=== PATIENT | male | born 1960 | race Caucasian/White ===

== ENCOUNTER 2016-05-22 02:45 | Emergency (ER) | payer OTHER ==
[2016-05-22 02:53] VITALS: TEMP 97.5
--- NOTE | 2016-05-22 03:09 | ED ---
Chest Pain HPI - General Chief Complaint: Chest Pain Stated Complaint: chest pains Time Seen by Provider: 05/22/16 02:55 Source: patient, RN notes reviewed Mode of arrival: wheelchair Limitations: no limitations - History of Present Illness Initial Comments: This is a 55-year-old male with a history of hypertension and high cholesterol states he had the onset at 8 PM last night of left-sided axillary pain sharp in nature mild to moderate in severity increases with movement of his arms he denies any cough fevers chills sweats nausea vomiting states it radiates around his left breast area. He is not recall lifting anything really having he did move a 15 pound approximate piece of furniture recently. He did recall any abnormal movements. He denies any other symptoms he has no history of heart disease. He is a nonsmoker. Patient does state that he recently was treated for a cold with a Z-Claudio. MD Complaint: chest pain - Related Data Home Medications Medication Instructions Recorded Confirmed Atorvastatin [Lipitor] 10 mg PO DAILY 11/09/13 05/22/16 amLODIPine BESYLATE [Norvasc] 5 mg PO DAILY 11/09/13 05/22/16 HYDROcodone/APAP 7.5-325MG [[place] 1 tab PO Q6HR PRN 11/27/13 05/22/16 7.5-325] Previous Rx's Medication Instructions Recorded Cyclobenzaprine [Flexeril] 10 mg PO TID #14 tab 05/22/16 Ibuprofen [Motrin] 800 mg PO Q6HR PRN #20 tab 05/22/16 Allergies Allergy/AdvReac Type Severity Reaction Status Date / Time bee pollen [Bee Pollen] Allergy Swelling Verified 11/09/13 10:18 Review of Systems ROS Statement: Those systems with pertinent positive or pertinent negative responses have been documented in the HPI. ROS Other: All systems not noted in ROS Statement are negative. EKG Findings - EKG Results: EKG: interpreted by YASMANI, sinus rhythm (Sinus rhythm with a rate 77 [place] interval 164 QRS duration 108 QT/QTC 396/448 evidence a left exodeviation acute ST elevation or depressions.) Past Medical History Past Medical History: Hyperlipidemia, Hypertension, Musculoskeletal Disorder Additional Past Medical History / Comment(s): INJURY TO RT SHOULDER AT PRESENT History of Any Multi-Drug Resistant Organisms: None Reported Past Surgical History: Bowel Resection, Orthopedic Surgery Additional Past Surgical History / Comment(s): rt knee arthroscopy Past Anesthesia/Blood Transfusion Reactions: No Reported Reaction Past Psychological History: No Psychological Hx Reported Smoking Status: Former smoker Past Alcohol Use History: Occasional Past Drug Use History: None Reported General Exam - General Exam Comments Initial Comments: This is a well-developed well-nourished awake alert oriented x3 male Limitations: no limitations General appearance: alert, in no apparent distress Head exam: Present: atraumatic, normocephalic, normal inspection Eye exam: Present: normal appearance, PERRL, EOMI. Absent: scleral icterus, conjunctival injection, periorbital swelling ENT exam: Present: normal exam, mucous membranes moist Neck exam: Present: normal inspection. Absent: tenderness, meningismus, lymphadenopathy Respiratory exam: Present: normal lung sounds bilaterally, chest wall tenderness (Tenderness palpation of the left pectoralis muscle and around the left axilla. Some mild costochondral tenderness palpation no step-off no crepitation.). Absent: respiratory distress, wheezes, rales, rhonchi, stridor Cardiovascular Exam: Present: regular rate, normal rhythm, normal heart sounds. Absent: systolic murmur, diastolic murmur, rubs, gallop, clicks GI/Abdominal exam: Present: soft, normal bowel sounds. Absent: distended, tenderness, guarding, rebound, rigid Extremities exam: Present: normal inspection, full ROM, normal capillary refill. Absent: tenderness, pedal edema, joint swelling, calf tenderness Back exam: Present: normal inspection Neurological exam: Present: alert, oriented X3, CN II-XII intact Psychiatric exam: Present: normal affect, normal mood Skin exam: Present: warm, dry, intact, normal color. Absent: rash Course Vital Signs 05/22/16 05/22/16 05/22/16 02:50 03:38 04:18 Temperature 97.5 F L Pulse Rate 86 63 69 Respiratory 18 16 16 Rate Blood Pressure 168/88 133/79 133/79 O2 Sat by Pulse 99 98 98 Oximetry Chest Pain MDM - MDM Review the x-ray shows no acute findings. I did discuss the findings with the patient the presentation is consistent with musculoskeletal pain he will be placed on appropriate medication. Disposition Clinical Impression: Chest wall syndrome, Costalchondritis, Left shoulder strain Disposition: HOME SELF-CARE Condition: Good Instructions: Costochondritis (ED), Muscle Strain (ED) Prescriptions: Cyclobenzaprine [Flexeril] 10 mg PO TID #14 tab Ibuprofen [Motrin] 800 mg PO Q6HR PRN #20 tab PRN Reason: Pain
[2016-05-22 03:15] LABS: Basophils # (A) 0.1 k/uL (0-0.2); Basophils % (A) 1 %; CH 29.9; CHCM 33.3; Eosinophils # (A) 0.4 k/uL (0-0.7); Eosinophils % (A) 3 %; HCT 45.7 % (39.0-53.0); HDW 2.59; HGB 14.9 gm/dL (13.0-17.5); Luc # (Auto) 0.27; Luc % (Auto) 2; Lymphocytes # (A) 4.7 k/uL (1.0-4.8); Lymphocytes % (A) 31 %; MCH 29.5 pg (25.0-35.0); MCHC 32.7 g/dL (31.0-37.0); MCV 90.3 fL (80.0-100.0); Mean Platelet Volume 7.1; Monocytes # (A) 0.7 k/uL (0-1.0); Monocytes % (A) 4 %; Neutrophils # (A) 8.8 k/uL (1.3-7.7); Neutrophils % (A) 59 %; RBC 5.06 m/uL (4.30-5.90); RDW 13.8 % (11.5-15.5); WBC 14.9 k/uL (3.8-10.6); WBC (Perox) 14.72
[2016-05-22 03:27] LABS: ALT 40 U/L (21-72); AST 23 U/L (17-59); Alkaline Phosphatase 101 U/L (38-126); Anion Gap 14 mmol/L; Blood Urea Nitrogen 21 mg/dL (9-20); Calcium 9.1 mg/dL (8.4-10.2); Carbon Dioxide 19 mmol/L (22-30); Chloride 108 mmol/L (98-107); Glucose 109 mg/dL (74-99); Magnesium 2.1 mg/dL (1.6-2.3); Non-African American GFR(MDRD) >60 (>60 ml/min/1.73 sqM); Potassium 3.9 mmol/L (3.5-5.1); Sodium 141 mmol/L (137-145); Total Bilirubin 0.4 mg/dL (0.2-1.3); Total Protein 7.7 g/dL (6.3-8.2)
[2016-05-22 03:35] LABS: Prothrombin Time 9.9 sec (9.0-12.0)
[2016-05-22 03:39] VITALS: BP 133/79; RESP 16
--- NOTE | 2016-05-22 03:42 | XR ---
EXAMINATION TYPE: XR chest 2V DATE OF EXAM: 05/22/2016 3:16 AM COMPARISON: NONE HISTORY: Chest pain TECHNIQUE: Frontal and lateral views of the chest are obtained. FINDINGS: Heart and mediastinum are normal. Lungs are clear. Diaphragm is normal. Bony thorax is int act. There are chest leads. IMPRESSION: Normal chest
[2016-05-22 03:48] LABS: Creatine Kinase 49 U/L (55-170)
[2016-05-22 04:01] LABS: Creatine Kinase MB 0.5 ng/mL (0.0-2.4); Troponin I <0.012 ng/mL (0.000-0.034)
[2016-05-22 04:19] VITALS: PULSE 69
== END 2016-05-22 04:29 | disposition home or self-care (01) ==
LOC: EC 02:45
DX: S46.912A Strain of unspecified muscle, fascia and tendon at shoulder and upper arm level, left arm, initial encounter (principal); M94.0 Chondrocostal junction syndrome [Tietze]; R07.1 Chest pain on breathing; E78.5 Hyperlipidemia, unspecified; I10 Essential (primary) hypertension; Z91.030 Bee allergy status; Z87.891 Personal history of nicotine dependence; Z79.899 Other long term (current) drug therapy; X50.9XXA Other and unspecified overexertion or strenuous movements or postures, initial encounter; Y93.89 Activity, other specified
CPT/HCPCS: 36415; 71020; 80053; 82550; 82553; 83735; 84484; 85025; 85379; 85610; 85730; 93005; 99285

== ENCOUNTER 2016-09-24 10:00 | Emergency (ER) | payer OTHER ==
--- NOTE | 2016-09-24 10:15 | ED ---
General Adult HPI - General Chief complaint: Neuro Symptoms/Deficit Stated complaint: tingling left side Time Seen by Provider: 09/24/16 10:05 Source: patient, RN notes reviewed Mode of arrival: ambulatory Limitations: no limitations - History of Present Illness Initial comments: This is a 56-year-old male who presents to the emergency department complaining of tingling sensation on the left side of his body. Patient states it's in his left arm and left chest and abdomen area. Patient states it started last night at about 9:00 and it is intermittent. Patient states as long as he moves around it goes away when he sits still the tingling sensation comes back. Patient states he has no decrease sensation he has no weakness anywhere. Patient denies headache patient denies blurred vision patient denies any speech disturbance. Patient denies any recent injury or trauma. Patient states this morning he got up moving around he felt fine he went bicycle 5 miles when he sat down the tingling sensation came back and then he moves around again and it goes away. Patient denied any chest pain patient denies difficulty breathing or shortness of breath. Patient denies any recent fever chills per patient denies abdominal pain patient denies nausea vomiting or diarrhea. - Related Data Home Medications Medication Instructions Recorded Confirmed Atorvastatin [Lipitor] 10 mg PO DAILY 11/09/13 09/24/16 HYDROcodone/APAP 7.5-325MG [[place] 1 tab PO Q6HR PRN 11/27/13 09/24/16 7.5-325] Aspirin 325 mg PO DAILY PRN 09/24/16 09/24/16 amLODIPine [Norvasc] 10 mg PO DAILY 09/24/16 09/24/16 Previous Rx's Medication Instructions Recorded Ibuprofen [Motrin] 800 mg PO Q6HR PRN #20 tab 05/22/16 Allergies Allergy/AdvReac Type Severity Reaction Status Date / Time bee pollen [Bee Pollen] Allergy Swelling Verified 09/24/16 11:20 Review of Systems ROS Statement: Those systems with pertinent positive or pertinent negative responses have been documented in the HPI. ROS Other: All systems not noted in ROS Statement are negative. Past Medical History Past Medical History: Hyperlipidemia, Hypertension, Musculoskeletal Disorder Additional Past Medical History / Comment(s): INJURY TO RT SHOULDER AT PRESENT History of Any Multi-Drug Resistant Organisms: None Reported Past Surgical History: Bowel Resection, Orthopedic Surgery Additional Past Surgical History / Comment(s): rt knee arthroscopy Past Anesthesia/Blood Transfusion Reactions: No Reported Reaction Past Psychological History: No Psychological Hx Reported Smoking Status: Former smoker Past Alcohol Use History: Occasional Past Drug Use History: None Reported General Exam - General Exam Comments Initial Comments: GENERAL: Patient is well-developed and well-nourished. Patient is nontoxic and well- hydrated and is in mild distress. ENT: Neck is soft and supple. No significant lymphadenopathy is noted. Oropharynx is clear. Moist mucous membranes. Neck has full range of motion without eliciting any pain. EYES: The sclera were anicteric and conjunctiva were pink and moist. Extraocular movements were intact and pupils were equal round and reactive to light. Eyelids were unremarkable. PULMONARY: Unlabored respirations. Good breath sounds bilaterally. No audible rales rhonchi or wheezing was noted. CARDIOVASCULAR: There is a regular rate and rhythm without any murmurs gallops or rubs. ABDOMEN: Soft and nontender with normal bowel sounds. No palpable organomegaly was noted. There is no palpable pulsatile mass. SKIN: Skin is clear with no lesions or rashes and otherwise unremarkable. NEUROLOGIC: Patient is alert and oriented x3. Cranial nerves II through XII are grossly intact. Motor and sensory are also intact. Normal speech, volume and content. Symmetrical smile. MUSCULOSKELETAL: Normal extremities with adequate strength and full range of motion. No lower extremity swelling or edema. No calf tenderness. LYMPHATICS: No significant lymphadenopathy is noted PSYCHIATRIC: Normal psychiatric evaluation. Limitations: no limitations Course Vital Signs 09/24/16 09/24/16 09/24/16 10:04 10:45 11:22 Temperature 98.1 F Pulse Rate 89 76 72 Respiratory 20 18 18 Rate Blood Pressure 147/84 131/77 122/76 O2 Sat by Pulse 99 99 98 Oximetry Medical Decision Making - Medical Decision Making EKG shows normal sinus rhythm at 82 bpm. It was on a 58 QRS 136 QT interval 46 QTC is 474. Patient's EKG shows no ST segment elevation or depression or T wave abnormalities are noted. Patient has a right branch block which is new compared the old EKG done one year ago. CT of the brain shows no acute abnormality. Chest x-ray shows no acute abnormality. I went back in to reevaluate the patient patient states he can make tingling sensation go away immediately any time he moves his arm or start getting up and moving around. Patient states he' ll follow up with Dr. Mcgrath. - Lab Data Result diagrams: 09/24/16 10:20 09/24/16 10:20 Lab Results 09/24/16 09/24/16 09/24/16 Range/Units 10:20 10:20 10:20 WBC 7.7 (3.8-10.6) k/uL RBC 4.90 (4.30-5.90) m/uL Hgb 14.6 (13.0-17.5) gm/dL Hct 44.7 (39.0-53.0) % MCV 91.1 (80.0-100.0) fL MCH 29.8 (25.0-35.0) pg MCHC 32.7 (31.0-37.0) g/dL RDW 13.8 (11.5-15.5) % Plt Count 265 (150-450) k/uL Neutrophils % 66 % Lymphocytes % 24 % Monocytes % 4 % Eosinophils % 3 % Basophils % 1 % Neutrophils # 5.1 (1.3-7.7) k/uL Lymphocytes # 1.9 (1.0-4.8) k/uL Monocytes # 0.3 (0-1.0) k/uL Eosinophils # 0.2 (0-0.7) k/uL Basophils # 0.1 (0-0.2) k/uL PT (9.0-12.0) sec INR (<1.1) APTT (22.0-30.0) sec Sodium 141 (137-145) mmol/L Potassium 4.6 (3.5-5.1) mmol/L Chloride 108 H (98-107) mmol/L Carbon Dioxide 20 L (22-30) mmol/L Anion Gap 13 mmol/L BUN 15 (9-20) mg/dL Creatinine 0.86 (0.66-1.25) mg/dL Est GFR (MDRD) Af Amer >60 (>60 ml/min/1.73 sqM) Est GFR (MDRD) Non-Af >60 (>60 ml/min/1.73 sqM) Glucose 110 H (74-99) mg/dL Calcium 9.5 (8.4-10.2) mg/dL Total Bilirubin 0.7 (0.2-1.3) mg/dL AST 25 (17-59) U/L ALT 33 (21-72) U/L Alkaline Phosphatase 108 (38-126) U/L Total Creatine Kinase 131 (55-170) U/L CK-MB (CK-2) 0.8 (0.0-2.4) ng/mL CK-MB (CK-2) Rel Index 0.6 Troponin I <0.012 (0.000-0.034) ng/mL Total Protein 8.2 (6.3-8.2) g/dL Albumin 4.6 (3.5-5.0) g/dL 09/24/16 Range/Units 10:20 WBC (3.8-10.6) k/uL RBC (4.30-5.90) m/uL Hgb (13.0-17.5) gm/dL Hct (39.0-53.0) % MCV (80.0-100.0) fL MCH (25.0-35.0) pg MCHC (31.0-37.0) g/dL RDW (11.5-15.5) % Plt Count (150-450) k/uL Neutrophils % % Lymphocytes % % Monocytes % % Eosinophils % % Basophils % % Neutrophils # (1.3-7.7) k/uL Lymphocytes # (1.0-4.8) k/uL Monocytes # (0-1.0) k/uL Eosinophils # (0-0.7) k/uL Basophils # (0-0.2) k/uL PT 10.1 (9.0-12.0) sec INR 1.0 (<1.1) APTT 23.6 (22.0-30.0) sec Sodium (137-145) mmol/L Potassium (3.5-5.1) mmol/L Chloride (98-107) mmol/L Carbon Dioxide (22-30) mmol/L Anion Gap mmol/L BUN (9-20) mg/dL Creatinine (0.66-1.25) mg/dL Est GFR (MDRD) Af Amer (>60 ml/min/1.73 sqM) Est GFR (MDRD) Non-Af (>60 ml/min/1.73 sqM) Glucose (74-99) mg/dL Calcium (8.4-10.2) mg/dL Total Bilirubin (0.2-1.3) mg/dL AST (17-59) U/L ALT (21-72) U/L Alkaline Phosphatase (38-126) U/L Total Creatine Kinase (55-170) U/L CK-MB (CK-2) (0.0-2.4) ng/mL CK-MB (CK-2) Rel Index Troponin I (0.000-0.034) ng/mL Total Protein (6.3-8.2) g/dL Albumin (3.5-5.0) g/dL Disposition Clinical Impression: Paresthesias Disposition: HOME SELF-CARE Condition: Good Instructions: Paresthesia (ED) Referrals: Ej Mcgrath MD [Primary Care Provider] - 1-2 days Time of Disposition: 11:31
[2016-09-24 10:33] LABS: Basophils # (A) 0.1 k/uL (0-0.2); Basophils % (A) 1 %; CH 30.5; CHCM 33.7; Eosinophils # (A) 0.2 k/uL (0-0.7); Eosinophils % (A) 3 %; HCT 44.7 % (39.0-53.0); HDW 2.48; HGB 14.6 gm/dL (13.0-17.5); Luc # (Auto) 0.17; Luc % (Auto) 2; Lymphocytes # (A) 1.9 k/uL (1.0-4.8); Lymphocytes % (A) 24 %; MCH 29.8 pg (25.0-35.0); MCHC 32.7 g/dL (31.0-37.0); MCV 91.1 fL (80.0-100.0); Mean Platelet Volume 7.6; Monocytes # (A) 0.3 k/uL (0-1.0); Monocytes % (A) 4 %; Neutrophils # (A) 5.1 k/uL (1.3-7.7); Neutrophils % (A) 66 %; RDW 13.8 % (11.5-15.5); WBC 7.7 k/uL (3.8-10.6); WBC (Perox) 7.52
[2016-09-24 10:41] LABS: Partial Thromboplastin Time 23.6 sec (22.0-30.0); Prothrombin Time 10.1 sec (9.0-12.0)
[2016-09-24 10:43] LABS: ALT 33 U/L (21-72); AST 25 U/L (17-59); Alkaline Phosphatase 108 U/L (38-126); Anion Gap 13 mmol/L; Blood Urea Nitrogen 15 mg/dL (9-20); Calcium 9.5 mg/dL (8.4-10.2); Carbon Dioxide 20 mmol/L (22-30); Chloride 108 mmol/L (98-107); Glucose 110 mg/dL (74-99); Non-African American GFR(MDRD) >60 (>60 ml/min/1.73 sqM); Potassium 4.6 mmol/L (3.5-5.1); Sodium 141 mmol/L (137-145); Total Bilirubin 0.7 mg/dL (0.2-1.3); Total Protein 8.2 g/dL (6.3-8.2)
[2016-09-24 10:57] LABS: Creatine Kinase 131 U/L (55-170)
[2016-09-24 11:10] LABS: Creatine Kinase MB 0.8 ng/mL (0.0-2.4); Troponin I <0.012 ng/mL (0.000-0.034)
--- NOTE | 2016-09-24 11:10 | CT ---
EXAMINATION TYPE: CT brain wo con DATE OF EXAM: 09/24/2016 COMPARISON: NONE HISTORY: Pain behind eyes and Left shoulder numbness and tingling to fingers CT DLP: 982.[address] of the brain was performed. The ventricles, basal cisterns and sulci overlying the cerebral convexities demonstrate mild enlargem ent. There is no evidence for intracranial hemorrhage or sulcal effacement. There is decreased attenuation about the periventricular white matter and deep white matter of both c erebral hemispheres, compatible with chronic small vessel ischemia. Differential diagnosis does inclu de demyelination. No mass effects are seen.No midline shift. Osseous calvarium is intact. If symptoms persist consider MRI. IMPRESSION: 1. Age related atrophic and chronic small vessel ischemic change without acute intracranial process s een at this time.
--- NOTE | 2016-09-24 11:11 | XR ---
EXAMINATION TYPE: XR chest 2V DATE OF EXAM: 09/24/2016 COMPARISON: 05/22/2016 HISTORY: Shortness of breath TECHNIQUE: Frontal and lateral views of the chest are obtained. FINDINGS: Scattered senescent parenchymal changes noted. Hyperinflation compatible with COPD. No evidence for infiltrate. No evidence for atelectasis. Heart size is stable. Mediastinal structures are stable and grossly unremarkable. No evidence for hilar prominence. Degenerative changes dorsal spine. IMPRESSION: 1. No evidence for acute pulmonary disease.
[2016-09-24 11:39] VITALS: BP 129/83; PULSE 73; RESP 16; TEMP 98.3
== END 2016-09-24 11:39 | disposition home or self-care (01) ==
LOC: EC 10:00
DX: R20.2 Paresthesia of skin (principal); I45.10 Unspecified right bundle-branch block; E78.5 Hyperlipidemia, unspecified; I10 Essential (primary) hypertension; Z87.891 Personal history of nicotine dependence; Z91.018 Allergy to other foods; Z79.899 Other long term (current) drug therapy
CPT/HCPCS: 36415; 70450; 71020; 80053; 82550; 82553; 84484; 85025; 85610; 85730; 93005; 99285

== ENCOUNTER 2018-05-01 07:21 | Day surgery (SDC) | payer OTHER ==
[2018-04-29 14:38] VITALS: BMI 32.7
[~2018-05-01 07:21] MED LIST: LACTATED RINGERS 1,000 ML IV SCH; LIDOCAINE 1% 20 ML VIAL (10MG/ML) FOR IV START INTRADERMA PRN
--- NOTE | 2018-05-01 07:22 | P.GSHP ---
History of Present Illness H&P Date: 05/01/18 CHIEF COMPLAINT: Colon screen HISTORY OF PRESENT ILLNESS: The patient is a 57-year-old male who presents for colon screen. Lower endoscopy was offered for further evaluation and management. PAST MEDICAL HISTORY: Please see list. PAST SURGICAL HISTORY: Please see list. MEDICATIONS: Please see list. ALLERGIES: Please see list. SOCIAL HISTORY: No illicit drug use FAMILY HISTORY: No reports of Crohn disease or ulcerative colitis. REVIEW OF ORGAN SYSTEMS: CONSTITUTIONAL: No reports of fevers or chills. PHYSICAL EXAM: VITAL SIGNS: Stable GENERAL: Well-developed pleasant in no acute distress. HEENT: No scleral icterus. Extraocular movements grossly intact. Moist buccal mucosa. NECK: Supple without lymphadenopathy. CHEST: Unlabored respirations. Equal bilateral excursions. CARDIOVASCULAR: Regular rate and rhythm. Distal 2+ pulses. ABDOMEN: Soft, nontender, nondistended. MUSCULOSKELETAL: No clubbing, cyanosis, or edema. ASSESSMENT: 1. Colon screen. PLAN: 1. Recommend proceeding with a lower endoscopy Past Medical History Past Medical History: Hyperlipidemia, Hypertension, Musculoskeletal Disorder Additional Past Medical History / Comment(s): INJURY TO RT SHOULDER AT PRESENT History of Any Multi-Drug Resistant Organisms: None Reported Past Surgical History: Bowel Resection, Orthopedic Surgery Additional Past Surgical History / Comment(s): rt knee arthroscopy Past Anesthesia/Blood Transfusion Reactions: No Reported Reaction Smoking Status: Former smoker - Past Family History Mother Family Medical History: No Reported History Medications and Allergies Home Medications Medication Instructions Recorded Confirmed Type Atorvastatin [Lipitor] 20 mg PO DAILY 11/09/13 04/29/18 History HYDROcodone/APAP 7.5-325MG [[place] 1 tab PO Q6HR PRN 11/27/13 04/29/18 History 7.5-325] Ibuprofen [Motrin] 800 mg PO Q6HR PRN #20 tab 05/22/16 04/29/18 Rx Aspirin 81 mg PO DAILY 09/24/16 04/29/18 History amLODIPine [Norvasc] 10 mg PO DAILY 09/24/16 04/29/18 History Fenofibrate 160 mg PO DAILY 04/29/18 04/29/18 History Losartan [Cozaar] 50 mg PO DAILY 04/29/18 04/29/18 History Allergies Allergy/AdvReac Type Severity Reaction Status Date / Time bee pollen [Bee Pollen] Allergy Swelling Verified 04/29/18 14:39
[2018-05-01 07:35] VITALS: RESP 18; TEMP 97.3
[2018-05-01] MEDS ORDERED: LACTATED RINGERS 1,000 ML IV ONE (07:35)
[2018-05-01] MEDS ORDERED: PROPOFOL 10 MG/ML 20 ML VIAL IV ONE (08:35)
--- NOTE | 2018-05-01 08:53 | P.PCN ---
Date of Procedure: 05/01/18 Description of Procedure: PREOPERATIVE DIAGNOSIS: Personal history of colon polyps Colonoscopy screening. POSTOPERATIVE DIAGNOSIS: Personal history of colon polyps Colonoscopy screening OPERATION: Colonoscopy to the ileocecal valve and appendiceal orifice. SURGEON: Kinga Livingston MD. ANESTHESIA: MAC. INDICATIONS: The patient is a 57-year-old male who presents for colonoscopy screening. Last colonoscopy was 7 years ago. Benefits and risks were described and informed consent was obtained. DESCRIPTION OF PROCEDURE: The patient had undergone Gatorade, MiraLAX and Dulcolax prep. He had been brought into the operating room and laid in the left lateral decubitus position. After adequate intravenous sedation, the rectum was examined with 2% lidocaine jelly. The prostate was smooth and without abnormality. No external hemorrhoids were encountered. The rectal tone was within normal limits. No lesions were palpated in the rectal vault. An Olympus colonoscope was advanced until the ileocecal valve and appendiceal orifice were clearly viewed. The prep was good with clear visualization of the mucosal folds. The scope was removed with visualization of each mucosal fold. No scattered diverticulosis was encountered. No colonic polyps were found. No evidence of focal colitis was found. Retroflexion of the scope demonstrated grade 1 internal hemorrhoids without active bleeding or inflammation. The colon was desufflated. The patient had tolerated the procedure well. Withdrawal time was over 6 minutes. FINDINGS: Internal hemorrhoids, grade 1 No external prolapsed hemorrhoids. No arteriovenous malformations. No adenomatous polyps. No focal colitis. RECOMMENDATIONS: Lower endoscopy in 5 years per high-risk screening Plan - Discharge Summary New Discharge Prescriptions: No Action Atorvastatin [Lipitor] 20 mg PO DAILY HYDROcodone/APAP 7.5-325MG [[place] 7.5-325] 1 tab PO Q6HR PRN PRN Reason: Pain Ibuprofen [Motrin] 800 mg PO Q6HR PRN #20 tab PRN Reason: Pain amLODIPine [Norvasc] 10 mg PO DAILY Aspirin 81 mg PO DAILY Losartan [Cozaar] 50 mg PO DAILY Fenofibrate 160 mg PO DAILY Discharge Medication List Atorvastatin [Lipitor] 20 mg PO DAILY 11/09/13 [History] HYDROcodone/APAP 7.5-325MG [[place] 7.5-325] 1 tab PO Q6HR PRN 11/27/13 [History] Ibuprofen [Motrin] 800 mg PO Q6HR PRN #20 tab 05/22/16 [Rx] Aspirin 81 mg PO DAILY 09/24/16 [History] amLODIPine [Norvasc] 10 mg PO DAILY 09/24/16 [History] Fenofibrate 160 mg PO DAILY 04/29/18 [History] Losartan [Cozaar] 50 mg PO DAILY 04/29/18 [History]
[2018-05-01 09:12] VITALS: BP 120/70; PULSE 71
== END 2018-05-01 09:39 | disposition home or self-care (01) ==
LOC: ORWHC2ENDO 07:21
PROVIDERS: ATTEND Surgery Plastic and Reconstructive Surgery
DX: Z12.11 Encounter for screening for malignant neoplasm of colon (principal); K64.0 First degree hemorrhoids; Z86.010 Personal history of colon polyps; Z90.49 Acquired absence of other specified parts of digestive tract; E78.5 Hyperlipidemia, unspecified; I10 Essential (primary) hypertension; Z79.82 Long term (current) use of aspirin; Z79.899 Other long term (current) drug therapy; Z91.030 Bee allergy status; Z87.891 Personal history of nicotine dependence
CPT/HCPCS: J2704; G0105

== ENCOUNTER 2021-03-12 01:56 | Emergency (ER) | payer OTHER ==
[2021-03-12 02:01] VITALS: TEMP 98.1
[2021-03-12 02:43] LABS: Basophils # (A) 0.1 k/uL (0-0.2); Basophils % (A) 1 %; Eosinophils # (A) 0.5 k/uL (0-0.7); Eosinophils % (A) 5 %; HCT 40.2 % (39.0-53.0); HGB 13.4 gm/dL (13.0-17.5); Lymphocytes # (A) 2.8 k/uL (1.0-4.8); Lymphocytes % (A) 28 %; MCH 30.2 pg (25.0-35.0); MCHC 33.2 g/dL (31.0-37.0); MCV 91.1 fL (80.0-100.0); Mean Platelet Volume 8.5; Monocytes # (A) 0.7 k/uL (0-1.0); Monocytes % (A) 7 %; Neutrophils # (A) 5.6 k/uL (1.3-7.7); Neutrophils % (A) 56 %; Platelet Count 299 k/uL (150-450); RBC 4.42 m/uL (4.30-5.90); RDW 13.5 % (11.5-15.5); WBC 9.9 k/uL (3.8-10.6)
[2021-03-12 02:54] LABS: Albumin 4.3 g/dL (3.5-5.0); Calcium 9.5 mg/dL (8.4-10.2); Potassium 4.4 mmol/L (3.5-5.1); Total Bilirubin 0.3 mg/dL (0.2-1.3); Total Protein 7.6 g/dL (6.3-8.2)
[2021-03-12 03:26] LABS: INR 0.9 (<1.2); Partial Thromboplastin Time 22.7 sec (22.0-30.0)
--- NOTE | 2021-03-12 03:27 | XR ---
EXAMINATION TYPE: XR chest 2V DATE OF EXAM: 03/12/2021 COMPARISON: 09/24/2016 HISTORY: Chest pain TECHNIQUE: 2 views FINDINGS: There is no heart failure nor confluent pneumonic infiltrate. Costophrenic angles are clear . There are no hilar masses. There are chest leads. IMPRESSION: No active cardiopulmonary disease. No change.
--- NOTE | 2021-03-12 03:29 | ED ---
Chest Pain HPI - General Chief Complaint: Chest Pain Stated Complaint: Chest pain, SOB Time Seen by Provider: 03/12/21 02:04 Source: patient Mode of arrival: ambulatory Limitations: no limitations - History of Present Illness Initial Comments: Patient is 60-year-old man who presents with complaint of chest pains going back approximately 3 days. They're located on the left upper chest. He states that they seem to come on and lasted about a minute at a time and resolved. He states that they're sometimes better if he moves into different positions. He has not noted worsening factors. He has not noted any accompanying symptoms. MD Complaint: chest pain Onset/Timin -: days(s) Onset: during rest Pain Location: left chest Severity: moderate Quality: tightness Consistency: intermittent Improves With: nothing Worsens With: nothing Treatments Prior to Arrival: none - Related Data Home Medications Medication Instructions Recorded Confirmed Atorvastatin [Lipitor] 20 mg PO DAILY 11/09/13 04/29/18 HYDROcodone/APAP 7.5-325MG [[place] 1 tab PO Q6HR PRN 11/27/13 04/29/18 7.5-325] Aspirin 81 mg PO DAILY 09/24/16 04/29/18 amLODIPine [Norvasc] 10 mg PO DAILY 09/24/16 04/29/18 Fenofibrate 160 mg PO DAILY 04/29/18 04/29/18 Losartan [Cozaar] 50 mg PO DAILY 04/29/18 04/29/18 Previous Rx's Medication Instructions Recorded Ibuprofen [Motrin] 800 mg PO Q6HR PRN #20 tab 05/22/16 Allergies Allergy/AdvReac Type Severity Reaction Status Date / Time bee pollen [Bee Pollen] Allergy Swelling Verified 03/12/21 02:01 Review of Systems ROS Statement: Those systems with pertinent positive or pertinent negative responses have been documented in the HPI. ROS Other: All systems not noted in ROS Statement are negative. Constitutional: Denies: fever, chills Respiratory: Denies: cough, dyspnea Cardiovascular: Reports: chest pain. 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) Past Medical History Past Medical History: Hyperlipidemia, Hypertension, Musculoskeletal Disorder Additional Past Medical History / Comment(s): INJURY TO RT SHOULDER AT PRESENT History of Any Multi-Drug Resistant Organisms: None Reported Past Surgical History: Bowel Resection, Orthopedic Surgery Additional Past Surgical History / Comment(s): rt knee arthroscopy Past Anesthesia/Blood Transfusion Reactions: No Reported Reaction Past Psychological History: No Psychological Hx Reported Smoking Status: Never smoker Past Alcohol Use History: Occasional Past Drug Use History: None Reported - Past Family History Mother Family Medical History: No Reported History General Exam Limitations: no limitations General appearance: alert, in no apparent distress Head exam: Present: atraumatic, normocephalic Eye exam: Present: normal appearance. Absent: scleral icterus, conjunctival injection Neck exam: Present: normal inspection Respiratory exam: Present: normal lung sounds bilaterally. Absent: respiratory distress, wheezes, rales, rhonchi, stridor, chest wall tenderness, accessory muscle use Cardiovascular Exam: Present: regular rate, normal rhythm, normal heart sounds. Absent: systolic murmur, diastolic murmur, rubs, gallop GI/Abdominal exam: Present: soft. Absent: distended, tenderness, guarding, rebound, rigid, mass Extremities exam: Present: normal inspection, normal capillary refill. Absent: pedal edema, calf tenderness Back exam: Present: normal inspection. Absent: CVA tenderness (R), CVA tenderness (L) Neurological exam: Present: alert Skin exam: Present: warm, dry, intact, normal color. Absent: rash Course Vital Signs 03/12/21 03/12/21 01:57 02:24 Temperature 98.1 F Pulse Rate 91 82 Respiratory 18 18 Rate Blood Pressure 171/93 165/88 O2 Sat by Pulse 99 98 Oximetry Chest Pain [facility] Patient is a 60-year-old man having very brief, atypical chest pains. There is family history of heart disease so I did offer admission for telemetry monitoring, serial cardiac enzymes and cardiology consultation. I do suspect however that since pains of been going on 3 days of that the troponin would be elevated by this time. 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 He will return if the symptoms recur. I discussed other return parameters. Disposition Clinical Impression: Chest pain Disposition: HOME SELF-CARE Condition: Good Instructions (If sedation given, give patient instructions): Chest Pain (ED) Is patient prescribed a controlled substance at d/c from ED?: No Referrals: Ej Mcgrath MD [Primary Care Provider] - 1-2 days
[2021-03-12 05:06] VITALS: BP 139/81; PULSE 73; RESP 17
== END 2021-03-12 05:06 | disposition home or self-care (01) ==
LOC: EC 01:56
DX: R07.89 Other chest pain (principal); R06.02 Shortness of breath; E78.5 Hyperlipidemia, unspecified; I10 Essential (primary) hypertension; Z91.030 Bee allergy status; Z79.82 Long term (current) use of aspirin; Z79.899 Other long term (current) drug therapy
CPT/HCPCS: 36415; 71046; 80053; 83735; 84484; 85025; 85610; 85730; 93005; 99285

== ENCOUNTER → 2022-04-13 | Outpatient (CLI) | payer OTHER ==
--- NOTE | 2022-04-13 15:27 | XR ---
EXAMINATION TYPE: XR knee complete RT DATE OF EXAM: 04/13/2022 CLINICAL HISTORY: pain TECHNIQUE: Three views of the right knee are obtained. COMPARISON: None. FINDINGS: There is no acute fracture/dislocation. The tri-compartment joint spaces appear within no rmal limits. The overlying soft tissue appears unremarkable. Also patellar joint effusion. IMPRESSION: There is no acute fracture or dislocation.ICD 10 NO FRACTURE, INITIAL EVALUATION
--- NOTE | 2022-04-13 15:33 | XR ---
EXAMINATION TYPE: XR tibia fibula RT DATE OF EXAM: 04/13/2022 COMPARISON: NONE HISTORY: 61-year-old male S80.01XA, S83.8X1A, S80.11XA TECHNIQUE: 2 views FINDINGS: Mild subcutaneous soft tissue swelling especially mid to distal aspect of the leg. Mild degenerative spurring of the patellofemoral compartment. No acute fracture. No periostitis or osteolysis. Os jannie num incidentally noted at the hindfoot. IMPRESSION: Generalized soft tissue swelling. No acute osseous abnormality seen.
== END | disposition home or self-care (01) ==
LOC: RADXRMAIN 14:58
PROVIDERS: ATTEND Emergency Medicine
DX: S80.01XA Contusion of right knee, initial encounter (principal); S83.8X1A Sprain of other specified parts of right knee, initial encounter; S80.11XA Contusion of right lower leg, initial encounter; M79.89 Other specified soft tissue disorders

== ENCOUNTER → 2022-05-01 | Outpatient (CLI) | payer OTHER ==
--- NOTE | 2022-05-01 10:41 | MR ---
EXAMINATION TYPE: MR knee RT wo con DATE OF EXAM: 05/01/2022 COMPARISON: Outside right knee x-ray April 21, 2022 HISTORY: RIGHT KNEE PAIN and swelling with locking after fall injury. TECHNIQUE: Multiplanar, multisequence images of the knee is performed without IV contrast. FINDINGS: MEDIAL MENISCUS: Some medial extrusion of medial meniscus on coronal images Oblique signal posterior horn does not definitively extend to articular surface. LATERAL MENISCUS: Anterior and posterior horns are intact without tear. CRUCIATE LIGAMENTS: The posterior cruciate ligament is intact and unremarkable. Marked increased sign al and fanning fibers of the anterior cruciate ligament. COLLATERAL LIGAMENTS: The medial collateral ligament and lateral collateral ligament complex are inta ct and unremarkable. EXTENSOR MECHANISM: Visualized quadriceps and patellar tendons are intact. EFFUSION: Small size suprapatellar joint effusion. POPLITEAL CYST: Small to tiny popliteal/palumbo cyst. TRICOMPARTMENT SPACES: Moderate to severe narrowing with mild to moderate spurring patellofemoral com partment. Mild to moderate narrowing and mild spurring medial and lateral tibiofemoral compartments. CARTILAGE: Chondromalacia patella with cartilaginous loss along the posterior patellar pole. Some car tilaginous loss lateral tibiofemoral compartment. BONE MARROW SIGNAL: Heterogeneous mixed T1 and increased T2 signal involving the posterior aspect of the distal lateral femoral condyle. Subchondral cystic change centrally in the distal femur. Heteroge neous diminished T1 and increased T2 signal involving the central proximal tibia. Some heterogeneous increased T2 signal posterior patella axial image 29 OTHER: No additional significant abnormality is appreciated. IMPRESSION: 1. Tricompartment degenerative changes that are moderate to borderline severe patellofemoral compartm ent as detailed above. 2. At least intrasubstance tear medial meniscus. 3. At least significant partial tearing of the anterior cruciate ligament. Osseous contusion injury i nvolving the mid to posterior aspect of the distal medial femoral condyle is seen. 4. Small suprapatellar joint effusion. 5. Small to tiny popliteal cyst.
== END | disposition home or self-care (01) ==
LOC: RADMRIMAIN 05:53
PROVIDERS: ATTEND Orthopaedic Surgery
DX: M17.11 Unilateral primary osteoarthritis, right knee (principal); S83.241A Other tear of medial meniscus, current injury, right knee, initial encounter; S80.01XA Contusion of right knee, initial encounter; M25.461 Effusion, right knee; M71.21 Synovial cyst of popliteal space [Baker], right knee

== ENCOUNTER 2022-07-25 08:20 | Day surgery (SDC) | payer OTHER ==
--- NOTE | 2022-07-24 09:43 | P.HPOR ---
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 He notes persistent medial and lateral pain with weightbearing activities. He has intermittent catching. He tried medications in addition to an injection and therapy without much relief. He notes daily symptoms that limit him. Review of Systems As per HPI Past Medical History Past Medical History: GERD/Reflux, Hyperlipidemia, Hypertension Additional Past Medical History / Comment(s): Bowel resection for twisted bowel, diverticular disease. History of Any Multi-Drug Resistant Organisms: None Reported Past Surgical History: Appendectomy, Bowel Resection, Orthopedic Surgery Additional Past Surgical History / Comment(s): rt knee arthroscopy, previous shoulder surgery Past Anesthesia/Blood Transfusion Reactions: No Reported Reaction Additional Past Anesthesia/Blood Transfusion Reaction / Comment(s): Pt has never received blood. Smoking Status: Former smoker - Past Family History Mother Family Medical History: No Reported History Additional Family Medical History / Comment(s): Mother . She had a pacermaker. Sister(s) Family Medical History: Cancer Additional Family Medical History / Comment(s): from "lymph node" can cer Medications and Allergies Home Medications Medication Instructions Recorded Confirmed Type Atorvastatin [Lipitor] 20 mg PO HS 11/09/13 07/21/22 History HYDROcodone/APAP 7.5-325MG [[place] 1 tab PO Q6HR PRN 11/27/13 07/21/22 History 7.5-325] Ibuprofen [Motrin] 800 mg PO Q6HR PRN #20 tab 05/22/16 07/21/22 Rx Aspirin 81 mg PO HS 09/24/16 07/21/22 History amLODIPine [Norvasc] 10 mg PO QAM 09/24/16 07/21/22 History Losartan [Cozaar] 50 mg PO QAM 04/29/18 07/21/22 History Metoprolol Tartrate [Lopressor] 12.5 mg PO BID 07/21/22 07/21/22 History Multivitamin/Iron/Folic Acid 1 tab PO QAM 07/21/22 07/21/22 History [[place] Adults Tablet] Allergies Allergy/AdvReac Type Severity Reaction Status Date / Time bee pollen [Bee Pollen] Allergy Swelling Verified 07/21/22 11:33 Physical Examination - Knee right Appearance: effusion Effusion grade: grade 2 Tenderness with palpation: medial, lateral Gait: limping ROM: extension: -15 degrees ROM: flexion: 100 degrees Strength: extension: 5/5 Strength: flexion: 5/5 Meniscal tests: medial meniscal tests: positive, lateral meniscal tests: positive, medial joint line pain: positive, lateral joint line pain: positive Results The patient is a well-developed well-nourished male, approximately 5 foot 10, 250 pounds of endomorphic habitus. HEENT exam is nonfocal, neck is supple. He has painless passive motion of the right hip. Straight leg raise is negative. His distal neurovascular appears intact in the right lower extremity. - Diagnostic results Knee MRI: report reviewed (MRI of the right knee by report shows evidence of a posterior medial meniscal tear along with ACL sprain. There is some signal involving the posterior lateral meniscus.) Assessment and Plan Assessment: Right knee internal derangement/symptomatic medial meniscal tear Right knee ACL sprain Plan: I talked to the patient at length regarding his condition along with treatment options. At this point he is quite symptomatic after this acute work injury despite conservative measures. After thorough discussion he opted to proceed with surgery. We'll plan to proceed with arthroscopic evaluation with probable partial medial meniscectomy, possible lateral meniscectomy, and possible ACL debridement. We'll likely perform that as an outpatient procedure. Risks and benefits were discussed at length in layman's terms.
[~2022-07-25 08:20] MED LIST changes: +DEXAMETHASONE SOD PHOSPHATE 4 MG/ML 1 ML VIAL IV ONE; +LIDOCAINE 1% (10MG/ML) FOR IV START INTRADERMA PRN; -LIDOCAINE 1% 20 ML VIAL (10MG/ML) FOR IV START INTRADERMA PRN; +MIDAZOLAM 2 MG/2 ML VIAL IV PRN; +ONDANSETRON 4 MG/2 ML VIAL IVP ONE
[2022-07-25] MEDS ORDERED: MIDAZOLAM 2 MG/2 ML VIAL IVP ONE (09:07)
[2022-07-25] MEDS ORDERED: KETOROLAC 15 MG/ML 1 ML VIAL ONE (10:25)
[2022-07-25] MEDS ORDERED: HYDROmorphone (PF) 1 MG/ML ONE (10:25)
[2022-07-25] MEDS ORDERED: MIDAZOLAM 2 MG/2 ML VIAL ONE (10:25)
[2022-07-25] MEDS ORDERED: DEXAMETHASONE SOD PHOSPHATE 4 MG/ML 1 ML VIAL ONE (10:25)
[2022-07-25] MEDS ORDERED: LIDOCAINE 2% INJ 20 MG/ML (2 ML VIAL) ONE (10:25)
[2022-07-25] MEDS ORDERED: PROPOFOL 10 MG/ML 20 ML VIAL IV ONE (10:25)
[2022-07-25] MEDS ORDERED: fentaNYL (PF) 50 MCG/ML 2 ML AMP ONE (10:25)
[2022-07-25] MEDS ORDERED: ROPIVACAINE 5 MG/ML 30 ML VIAL ONE (10:25)
[2022-07-25] MEDS ORDERED: SUCCINYLCHOLINE CHLORIDE 200 MG/10 ML VIAL IV ONE (10:25)
[2022-07-25] MEDS ORDERED: EPINEPHrine (PF) 1 ML in SODIUM CHLORIDE 0.9% IRRIGATIO 3,000 ML IRRIGATION ONE ×4 (10:44)
[2022-07-25] MEDS ORDERED: LACTATED RINGERS 1,000 ML IV ONE (10:59)
--- NOTE | 2022-07-25 11:20 | P.OP ---
Date of Procedure: 07/25/22 Preoperative Diagnosis: Right knee internal derangement Postoperative Diagnosis: Right knee posterior medial meniscal tear/posterior lateral meniscal tear/reactive synovitis of the anterior, medial, and lateral compartments Procedure(s) Performed: Right knee arthroscopic partial medial meniscectomy/partial lateral meniscectomy/partial synovectomy of the medial, lateral, patellofemoral compartments Anesthesia: TRISTINA Surgeon: Raimundo Garcia Estimated Blood Loss (ml): 10 Pathology: none sent Condition: stable Disposition: PACU Indications for Procedure: The patient is a 62-year-old male presents with progressive right knee pain and mechanical symptoms after previous work injury despite conservative measures. A discussion of the risks and benefits of operative intervention versus continued conservative measures was made with patient. He opted to proceed with surgery. Operative risks to include infection, neurovascular injury, development of blood clots, possible incomplete resolution of symptoms, possible worsening symptoms and need for subsequent procedures was discussed. Informed consent was obtained. Operative Findings: As below Description of Procedure: The patient was brought to the operating room, and after induction of general anesthesia examined the right knee. Collaterals were stable, Matty was negative, and posterior drawer was negative. The right lower extremity was prepped and draped in a normal fashion. A superior lateral portal was made through a 3 mm skin incision superior and lateral to the patella. This was used for outflow. A lateral portal was made through a 5 mm vertical skin incision lateral to the patella tendon above the joint line. Diagnostic arthroscopy was performed. On inspection of the medial compartment, and oblique tear involving the posterior aspect of the medial meniscus in the white-white junction was noted. This was debrided back to stable base with straight baskets and a motorized shaver. The remaining medial meniscus was stable and intact. Marked synovitis involving anterior medial compartment was noted and debrided with motorized shaver. On inspection of the notch, the anterior cruciate ligament appeared to be partially torn. The majority the fibers were intact and functioning.. On inspection of the lateral compartment, and oblique tear involving the posterior aspect the lateral meniscus was noted in the white-red junction. This was debrided back to stable base with straight baskets and a motorized shaver. The remaining lateral meniscus was stable and intact. Grade 2-3 chondral changes were noted involving the distal central portion of the lateral femoral condyle. Marked synovitis involving anterolateral compartment was debrided with motorized shaver. On inspection of the patellofemoral articulation, there was chondral fibrillation however no loose chondral fragments. Again marked synovitis was debrided with a motorized shaver.. The gutters were clear debris. The knee was then thoroughly irrigated. The portals were closed with Steri-Strips. A sterile dressing was applied in addition to a compression stocking. The patient was awoken from general anesthesia and transferred to recovery room in good condition. Blood loss was estimated at 10 mL. No complications were incurred.
[2022-07-25] MEDS: HYDROmorphone 0.5 MG/0.5 ML SYRINGE IVP PRN ×2 (11:26→11:43)
[2022-07-25 11:34] VITALS: TEMP 97.2
[2022-07-25] MEDS ORDERED: HYDROcodone/APAP 7.5-325MG 1 EACH TAB ONE (12:15)
[2022-07-25 12:38] VITALS: RESP 16
[2022-07-25 13:03] VITALS: BP 126/78; PULSE 78
--- NOTE | 2022-07-25 13:22 | P.ANPRN ---
Procedure Note - Anesthesia - Nerve Block Performed Right Adductor Canal Single Time Out Performed: Yes Date of Procedure: 07/25/22 Procedure Start Time: :07 Procedure Stop Time: 09:12 Location of Patient: PreOp Indication: Acute Post-Operative Pain, Requested by Surgeon Sedation Type: Sedate with meaningful contact maintained Preparation: Sterile Prep Position: Supine Needle Types: [place]unk Needle Gauge: 21 Ultrasound used to visualize needle placement: Yes Ultrasound used to observe medication spread: Yes Blood Aspirated: No Pain Paresthesia on Injection Noted: No Resistance on Injection: Normal Image Stored and Saved: Yes Events: Uneventful and Well Tolerated (Ropivacaine 0.5% 20 mL plus dexamethasone 4 mg)
== END 2022-07-25 13:08 | disposition home or self-care (01) ==
LOC: OR 08:20
PROVIDERS: ATTEND Orthopaedic Surgery
DX: S83.241A Other tear of medial meniscus, current injury, right knee, initial encounter (principal); S83.281A Other tear of lateral meniscus, current injury, right knee, initial encounter; G89.18 Other acute postprocedural pain; I10 Essential (primary) hypertension; E78.5 Hyperlipidemia, unspecified; K21.9 Gastro-esophageal reflux disease without esophagitis; Z90.49 Acquired absence of other specified parts of digestive tract; Z98.890 Other specified postprocedural states; Z87.891 Personal history of nicotine dependence; Z79.899 Other long term (current) drug therapy; X58.XXXA Exposure to other specified factors, initial encounter; Z79.82 Long term (current) use of aspirin; Z79.1 Long term (current) use of non-steroidal anti-inflammatories (NSAID)
CPT/HCPCS: 64447; 76942; 29880; J2250; J0330; J1100; J0690; J2405; J0171; J3010; J1170 ×2; J2795; J1885; J2704; J2001

== ENCOUNTER 2024-01-23 08:13 | Day surgery (SDC) | payer OTHER ==
--- NOTE | 2024-01-23 07:36 | P.GSHP ---
History of Present Illness H&P Date: 01/23/24 CHIEF COMPLAINT: Colon screen HISTORY OF PRESENT ILLNESS: The patient is a 63-year-old male who presents for colon screen. Lower endoscopy was offered for further evaluation and management. PAST MEDICAL HISTORY: Please see list. PAST SURGICAL HISTORY: Please see list. MEDICATIONS: Please see list. ALLERGIES: Please see list. SOCIAL HISTORY: No illicit drug use FAMILY HISTORY: No reports of Crohn disease or ulcerative colitis. REVIEW OF ORGAN SYSTEMS: CONSTITUTIONAL: No reports of fevers or chills. PHYSICAL EXAM: VITAL SIGNS: Stable GENERAL: Well-developed pleasant in no acute distress. HEENT: No scleral icterus. Extraocular movements grossly intact. Moist buccal mucosa. NECK: Supple without lymphadenopathy. CHEST: Unlabored respirations. Equal bilateral excursions. CARDIOVASCULAR: Regular rate and rhythm. Distal 2+ pulses. ABDOMEN: Soft, nontender, nondistended. MUSCULOSKELETAL: No clubbing, cyanosis, or edema. ASSESSMENT: 1. Colon screen. PLAN: 1. Recommend proceeding with a lower endoscopy Past Medical History Past Medical History: Hyperlipidemia, Hypertension, Musculoskeletal Disorder Additional Past Medical History / Comment(s): Lt. shoulder pain - awaiting surgery History of Any Multi-Drug Resistant Organisms: None Reported Past Surgical History: Bowel Resection, Orthopedic Surgery, Tonsillectomy Additional Past Surgical History / Comment(s): Rt. knee arthroscopy, Rt. shoulder arthroscopy Past Anesthesia/Blood Transfusion Reactions: No Reported Reaction Smoking Status: Former smoker - Past Family History Mother Family Medical History: No Reported History Sister(s) Family Medical History: Cancer Medications and Allergies Home Medications Medication Instructions Recorded Confirmed Type Atorvastatin [Lipitor] 20 mg PO HS 11/09/13 01/22/24 History Ibuprofen [Motrin] 800 mg PO Q6HR PRN #20 tab 05/22/16 01/22/24 Rx amLODIPine [Norvasc] 10 mg PO QAM 09/24/16 01/22/24 History Losartan [Cozaar] 100 mg PO QAM 04/29/18 01/22/24 History Metoprolol Tartrate [Lopressor] 12.5 mg PO BID 07/21/22 01/22/24 History HYDROcodone/APAP 7.5-325MG [[place] 1 tab PO Q6HR PRN #21 tab 07/25/22 01/22/24 Rx 7.5-325] ALPRAZolam [Xanax] 0.5 mg PO BID PRN 01/22/24 01/22/24 History Aspirin [[place] Aspirin EC] 81 mg PO DAILY 01/22/24 01/22/24 History Pregabalin [Lyrica] 75 mg PO BID 01/22/24 01/22/24 History Allergies Allergy/AdvReac Type Severity Reaction Status Date / Time bee pollen [Bee Pollen] Allergy Swelling Verified 01/22/24 08:18
[2024-01-23 08:45] VITALS: TEMP 97.9
[2024-01-23] MEDS: LACTATED RINGERS 1,000 ML IV SCH (08:54)
[2024-01-23] MEDS: IV FLUID CONTINUATION 1,000 ML IV ONE (08:55)
[2024-01-23] MEDS ORDERED: PROPOFOL 10 MG/ML 20 ML VIAL IV ONE (09:36)
--- NOTE | 2024-01-23 09:56 | P.PCN ---
Date of Procedure: 01/23/24 Description of Procedure: PREOPERATIVE DIAGNOSIS: Personal history of colon polyps Colonoscopy screening. POSTOPERATIVE DIAGNOSIS: Colonoscopy screening. OPERATION: Colonoscopy to the cecum, ileocecal valve and appendiceal orifice. SURGEON: Kinga Livingston MD. ANESTHESIA: MAC. INDICATIONS: The patient is a 63-year-old male who presents for colonoscopy screening. Last colonoscopy 5 years ago. Benefits and risks were described and informed consent was obtained. DESCRIPTION OF PROCEDURE: The patient had undergone GoLytely prep. The patient had been brought into the operating room and laid in the left lateral decubitus position. After adequate intravenous sedation, the rectum was examined with 2% lidocaine jelly. No external hemorrhoids were encountered. The rectal tone was within normal limits. No lesions were palpated in the rectal vault. An Olympus colonoscope was advanced until the cecum, ileocecal valve and appendiceal orifice were clearly viewed. The prep was excellent. No large scattered diverticulosis was encountered. No colonic polyps were found. No evidence of focal colitis was found. Retroflexion of the scope demonstrated grade 1 internal hemorrhoids without active bleeding or inflammation. The colon was desufflated. The patient had tolerated the procedure well. Withdrawal time was over 6 minutes. FINDINGS: Aronchick preparation quality scale 1 (1-5) Internal hemorrhoids, grade 1 No external prolapsed hemorrhoids. No arteriovenous malformations. No adenomatous polyps. No focal colitis. RECOMMENDATIONS: Lower endoscopy in 5 years, 2028 Plan - Discharge Summary Discharge Rx Participant: Yes New Discharge Prescriptions: Continue Atorvastatin [Lipitor] 20 mg PO HS Ibuprofen [Motrin] 800 mg PO Q6HR PRN #20 tab PRN Reason: Pain amLODIPine [Norvasc] 10 mg PO QAM Losartan [Cozaar] 100 mg PO QAM Pregabalin [Lyrica] 75 mg PO BID ALPRAZolam [Xanax] 0.5 mg PO BID PRN PRN Reason: Anxiety Metoprolol Tartrate [Lopressor] 12.5 mg PO BID HYDROcodone/APAP 7.5-325MG [[place] 7.5-325] 1 tab PO Q6HR PRN #21 tab PRN Reason: Pain Aspirin [[place] Aspirin EC] 81 mg PO DAILY Discharge Medication List Atorvastatin [Lipitor] 20 mg PO HS 11/09/13 [History] Ibuprofen [Motrin] 800 mg PO Q6HR PRN #20 tab 05/22/16 [Rx] amLODIPine [Norvasc] 10 mg PO QAM 09/24/16 [History] Losartan [Cozaar] 100 mg PO QAM 04/29/18 [History] Metoprolol Tartrate [Lopressor] 12.5 mg PO BID 07/21/22 [History] HYDROcodone/APAP 7.5-325MG [[place] 7.5-325] 1 tab PO Q6HR PRN #21 tab 07/25/22 [Rx] ALPRAZolam [Xanax] 0.5 mg PO BID PRN 01/22/24 [History] Aspirin [[place] Aspirin EC] 81 mg PO DAILY 01/22/24 [History] Pregabalin [Lyrica] 75 mg PO BID 01/22/24 [History] Follow up Appointment(s)/Referral(s): Kinga Livingston MD [STAFF PHYSICIAN] - As Needed Patient Instructions/Handouts: Colonoscopy (GEN) Activity/Diet/Wound Care/Special Instructions: Repeat colonoscopy 5 years, 2028 Discharge Disposition: HOME SELF-CARE
[2024-01-23 10:10] VITALS: RESP 16
[2024-01-23 10:34] VITALS: BP 111/70; PULSE 62
== END 2024-01-23 11:23 | disposition home or self-care (01) ==
LOC: ORWHC2ENDO 08:13
PROVIDERS: ATTEND Surgery Plastic and Reconstructive Surgery
DX: Z12.11 Encounter for screening for malignant neoplasm of colon (principal); K64.0 First degree hemorrhoids; Z86.0100 Personal history of colon polyps, unspecified; E78.5 Hyperlipidemia, unspecified; I10 Essential (primary) hypertension; Z79.899 Other long term (current) drug therapy; Z79.82 Long term (current) use of aspirin; Z91.030 Bee allergy status
CPT/HCPCS: J2704; G0121; 45378

== ENCOUNTER → 2024-03-03 | Outpatient (CLI) | payer OTHER ==
--- NOTE | 2024-03-04 07:08 | MR ---
EXAMINATION TYPE: MR shoulder LT wo con DATE OF EXAM: 03/03/2024 COMPARISON: Outside left shoulder x-ray January 28, 2024 HISTORY: Left shoulder pain when lifting arm above head x5 months TECHNIQUE: Multiplanar, multisequence imaging of the left shoulder is performed without contrast. FINDINGS: Rotator Cuff: Increased signal along the infraspinatus tendon. Mild increased signal along the supras pinatus tendon. Heterogeneity of the subscapularis tendon. Rotator cuff muscle bulk is preserved. Acromioclavicular Joint: Moderate to severe narrowing and capsular hypertrophy. Loss of underlying fa t plane. Glenohumeral Joint: Small joint effusion. No significant spurring. Labrum: Increased signal superior labrum consistent with degenerative tear. Biceps Tendon: The long head of biceps is in normal location within bicipital groove. Bone marrow signal: Tiny subchondral cystic changes superolateral humeral head. Other: No additional significant abnormality is appreciated. IMPRESSION: 1. Degenerative superior labral tear. 2. Tendinosis of the rotator cuff tendons most pronounced involving infraspinatus and subscapularis t endons. 3. 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 [facility], , 03/04/2024 7:05 AM
== END | disposition home or self-care (01) ==
LOC: RADMRIMAIN 20:30
PROVIDERS: ATTEND Orthopaedic Surgery
DX: S43.432A Superior glenoid labrum lesion of left shoulder, initial encounter (principal); M19.012 Primary osteoarthritis, left shoulder; M67.814 Other specified disorders of tendon, left shoulder; M25.812 Other specified joint disorders, left shoulder

== ENCOUNTER → 2024-04-29 | Outpatient (CLI) | payer OTHER ==
--- NOTE | 2024-04-29 14:28 | MR ---
EXAMINATION TYPE: MR cervical spine wo con DATE OF EXAM: 04/29/2024 1:55 PM COMPARISON: None. CLINICAL INDICATION: Male, 63 years old with history of M48.02, M54.12, Pain in left shoulder/scapula . TECHNIQUE: Multiplanar, multisequence images of the cervical spine were acquired without contrast. FINDINGS: No craniocervical junction abnormality, predental space widening, or prevertebral soft tissue swellin g. There is qhqm-nl-icvtnkqo degenerative disc disease mid to lower cervical spine with desiccated and b ulging discs. Minimal disc space narrowing lower cervical spine. Moderate multilevel hypertrophic facet and uncovertebral joint arthropathy especially mid to lower ce rvical spine. Changes result in a degenerative grade 1 anterolisthesis C4-C5, C5-C6, and C6-C7. No suspicious bone marrow replacement. Some fatty Modic type II endplate changes noted at C6-C7. No large focal disc herniation or significant spinal canal stenosis. At C3-C4, changes result in mild right neuroforaminal process. At C4-C5, moderate hypertrophic facet and mild uncovertebral joint arthropathy contributes to mild to moderate right neuroforaminal stenosis. At C5-C6, moderate hypertrophic facet arthropathy continues to mild right neuroforaminal stenosis. At C6/C7, moderate to severe uncovertebral joint arthropathy on the right contributes to moderate to severe right and mild left neuroforaminal stenosis. At C7-T1, there is severe right-sided facet arthr opathy but with only mild neural foraminal narrowing. IMPRESSION: 1. Zzvr-yi-mjwtukei degenerative disc disease especially mid to lower cervical spine. No large focal disc herniation or significant spinal canal stenosis. 2. Variable moderate hypertrophic facet and uncovertebral joint arthropathy. Degenerative grade 1 ant erolisthesis C4-C7 levels. 3. Changes result in neuroforaminal stenoses as outlined above, moderate to severe on the right at C6 -C7 and [id number]-ea-[id number] on the right at C4-C5. Mild at additional levels especially on the right. [facility], Workstation: [id number], 04/29/2024 2:25 PM
== END | disposition home or self-care (01) ==
LOC: RADMRIMAIN 12:47
PROVIDERS: ATTEND Orthopaedic Surgery
DX: M48.02 Spinal stenosis, cervical region (principal); M50.10 Cervical disc disorder with radiculopathy, unspecified cervical region; M47.22 Other spondylosis with radiculopathy, cervical region
CPT/HCPCS: 72141

== ENCOUNTER → 2024-08-12 | Outpatient (CLI) | payer OTHER ==
--- NOTE | 2024-08-12 15:20 | MR ---
EXAMINATION TYPE: MR shoulder LT wo con DATE OF EXAM: 08/12/2024 1:40 PM COMPARISON: 03/03/2024 CLINICAL INDICATION: Male, 64 years old with history of M25.512 LEFT SHOULDER PAIN, Left shoulder carin n, decreased ROM, injury 3 mos ago. IV Contrast: cc (None if empty) TECHNIQUE: Multiplanar, multisequence imaging of the left shoulder is performed without contrast. FINDINGS: There is no bone contusion or fracture. There are multiple subchondral cysts in the humeral head. The re is moderate stable osteoarthritic change of the AC joint there is hypertrophic spurring, thickenin g of the joint capsule and small effusion. There is no significant shoulder impingement. There is a interval worsening of a large intrasubstance tear of the infraspinatus tendon and a stable small rim rent tear of the infraspinatus tendon. There is no retraction of the musculotendinous junc tion. There is worsening edema within the infraspinatus muscle compartment. The supraspinatus and sub scapularis tendons are intact. The biceps tendon is normal in signal intensity and position within the bicipital groove and the jayde ps anchor is intact. There is no evidence of labral tear. There is no significant bursitis. IMPRESSION: Interval worsening in the rotator cuff tears of the infraspinatus tendon without retraction. The yuval ining rotator cuff tendons are intact. There is no evidence of a labral tear. [facility], , 08/12/2024 3:18 PM
== END | disposition home or self-care (01) ==
LOC: RADMRIMAIN 12:48
PROVIDERS: ATTEND Orthopaedic Surgery
DX: M75.112 Incomplete rotator cuff tear or rupture of left shoulder, not specified as traumatic (principal)

== ENCOUNTER → 2024-10-08 | Outpatient (CLI) | payer OTHER | END | disposition home or self-care (01) | LOC: LABWHC1 09:44 | PROVIDERS: ATTEND Orthopaedic Surgery | DX: Z01.812 Encounter for preprocedural laboratory examination (principal); M50.20 Other cervical disc displacement, unspecified cervical region; Z22.322 Carrier or suspected carrier of Methicillin resistant Staphylococcus aureus | CPT/HCPCS: 86850; 86900; 86901; 87070 ==

== ENCOUNTER 2024-10-16 09:30 | Day surgery (SDC) | payer OTHER ==
[2024-10-10 09:56] VITALS: BMI 50.8
--- NOTE | 2024-10-16 06:59 | P.HPOR ---
History of Present Illness H&P Date: 10/08/24 .D:Date: 10/08/24 : 10:57am .T:Title: PRE OP HP AND RISK REVIEW Surgical Procedure Risk Review Keenan Peña is a 64 year old male presenting for evaluation of sudden onset of UE WEAKNESS, PAIN, NECK PAIN AND PARESTHESIAS. It was my pleasure to have seen and examined Mr. Peña. In our visit today we have had a chance to go over subjective complaints, physical examination findings and treatments, including the natural course history without intervention and various interventional options. The imaging demonstrates C6-7 HNP WITH STENOSIS, SPONDYLOSIS, DISC COLLAPSE . On physical exam, Mr. Peña demonstrates UE PARESTHESAIS, UE WEAKNESS, NECK PAIN, ARM PAIN PAIN WITH ACTIVITY, DIFFICULTY SLEEPING AND DOING ADLS DUE TO THIS . I explained to the patient that as his condition progresses it could cause CONTINUED AND PROGRESSIVE PAIN, DEBILITY AND NEUROLOGICAL DEFICIT . At this time, based on the patients imaging and physical exam, I recommend surgery in the form or a: C6-7 ACDF . I discussed the risk and benefits of this procedure at length with Mr. Peña. The patient agreed to consider pursuing the procedure mentioned above. IMPRESSION: 1. C6-7 HNP WITH STENOSIS 2. BUE RADICULOPATHY 3. NECK PAIN Plan: 1. C6-7 ANTERIOR CERVICAL DISCECTOMY AND FUSION 2. Clearance obtained 3. Review of surgical risks and benefits as well as an educational packet on the proposed surgical procedure. Risks: All surgical procedures come with inherent risks, including those related to positioning, anesthesia, intraoperative findings, and postoperative complications. It is important to understand that surgery does not come with any guarantee of a successful outcome as complications and adverse events are always possible. The patient was given a handout in office today discussing the surgical procedure and risks associated with the intervention, both of which were discussed with the patient. These risks include but are not limited to the following: ? Experiencing same, different or even worse symptoms in back, neck, arms, or legs compared to before surgery. ? Requiring further surgery or other forms of treatment presently or at some time in the future at same or other levels of the intended spine surgery. ? On an extreme but fortunately relatively rare basis severe complication such as blindness, stroke, heart attack, temporary and/or permanent nerve injury, paralysis, coma, or may occur, sometimes without known explanation. ? Surgical complications may include but are not limited to risk of infection, fluid accumulation in the surgical dissection site, including a seroma or hematoma, that requires additional surgery, wound drainage, bleeding, new numbness or weakness, vision changes/loss, spinal fluid leakage, non-healing and/or infected incision, headaches, difficulty or inability to swallow, hoarseness, hemopneumothorax, pneumothorax, impotence, retrograde ejaculation, vaginal dryness; injury to nerves, spinal cord, blood vessels, lymphatics or other vital organs (i.e., bowel injury, injury to the great vessels); heterotopic bone formation; complications related to the hardware such as screws, rods, cages including misplaced hardware, device failure, instrumentation at the wrong spine level, hardware fracture/breakage, or hardware loosening; vertebral failure of the spinal column above or below the newly placed hardware; retained surgical instrumentations or devices and the need for further surgery. ? Medical risks of the planned spine surgery include but are not limited to generalized Infections to the whole body or local areas outside of the surgical site (sepsis), heart attack, bleeding, anaphylaxis, meningitis, seizure, epilepsy, hearing loss, burn coronado, laceration of the head or other areas of the body, bruising, hypersensitivity of the skin, bladder over distension; allergic reaction; shoulder injury related to positioning; fat, blood and air clots to other areas of the body like heart, lungs, brain; failure of internal organs such as lungs, kidneys, liver and excessive bleeding. If blood transfusions are necessary, note that transfusions may cause intolerance reactions such as anaphylaxis or other complex reactions. Despite best efforts, the results of spine surgery might not heal in terms of bone, soft tissues such as skin, fascia, ligaments, and joints. Additionally, in order to achieve best possible results, spine surgery may be carried out beyond the initially planned levels and involve decompression, fusion including insertion of hardware at levels other than the original intended area of surgical interest change some portions of the procedure in order to ensure the best possible outcomes. With spine surgery and spinal fusion, there are different off label uses of instrumentation (devices, implants and hardware) as well as biological substances (bone morphogenic proteins, demineralized bone matrix) as well as using extra bone from allograft sources (i.e. cadaver bone) or autograft (iliac crest bone, ribs, or the spine itself). The patient has been given information about these practices and their inherent risks and benefits. [facility] Assistants are medically trained surgical providers who function in the outpatient, inpatient, and operating room setting under the direct supervision of the attending surgeon.They assist in the operating room with direct supervision of the attending surgeons. The patient has had a chance to review all the listed information, has been given print outs detailing this information, and has had all his/her questions answered to their satisfaction. It was my pleasure to have seen and examined Mr. Peña. In our visit today we have had a chance to go over my understanding of our patient's current condition, the natural course history without intervention and various interventional options. Questions were invited and answered, and the patient wishes to proceed as outlined above. I have seen and examined the patient for 25 minutes and we have spent more than 50% of the time in repeat and detailed counseling about the patient's condition, its natural course history with out and as much as can be predicted with surgery and re-review of various surgical treatment options. In conclusion,Mr. Peña and his spouse/partner requested we proceed with the above suggested surgery and are willing to accept risks and limitations of the suggested surgery as nature of the disease process and our best attempts at treatment for the condition. Thank you again for allowing us to be part of your patient's care. Please don't hesitate to contact me if you have any further questions. Signed and authenticated by: [facility] [address] [place] [address] # SIGNED BY Xavier Houston (GOO)10/08/2024 12:34PM Past Medical History Past Medical History: Hyperlipidemia, Hypertension, Musculoskeletal Disorder Additional Past Medical History / Comment(s): Lt. shoulder pain - awaiting surgery History of Any Multi-Drug Resistant Organisms: None Reported Past Surgical History: Bowel Resection, Orthopedic Surgery, Tonsillectomy Additional Past Surgical History / Comment(s): Rt. knee arthroscopy, Rt. shoulder arthroscopy, COLONOSCOPY, Past Anesthesia/Blood Transfusion Reactions: No Reported Reaction Smoking Status: Former smoker - Past Family History Mother Family Medical History: No Reported History Sister(s) Family Medical History: Cancer Medications and Allergies Home Medications Medication Instructions Recorded Confirmed Type Atorvastatin [Lipitor] 20 mg PO HS 11/09/13 10/10/24 History Ibuprofen [Motrin] 800 mg PO Q6HR PRN #20 tab 05/22/16 10/10/24 Rx amLODIPine [Norvasc] 10 mg PO QAM 09/24/16 10/10/24 History Losartan [Cozaar] 100 mg PO QAM 04/29/18 10/10/24 History Metoprolol Tartrate [Lopressor] 12.5 mg PO BID 07/21/22 10/10/24 History HYDROcodone/APAP 7.5-325MG [[employer] 1 tab PO Q6HR PRN #21 tab 07/25/22 10/10/24 Rx 7.5-325] ALPRAZolam [Xanax] 0.5 mg PO BID PRN 01/22/24 10/10/24 History Allergies Allergy/AdvReac Type Severity Reaction Status Date / Time bee pollen [Bee Pollen] Allergy Swelling Verified 10/10/24 09:44 Physical Examination Osteopathic Statement: *. No significant issues noted on an osteopathic structural exam other than those noted in the History and Physical/Consult.
[~2024-10-16 09:30] MED LIST changes: -DEXAMETHASONE SOD PHOSPHATE 4 MG/ML 1 ML VIAL IV ONE; -LACTATED RINGERS 1,000 ML IV SCH; -ONDANSETRON 4 MG/2 ML VIAL IVP ONE; +ONDANSETRON 4 MG/2 ML VIAL IVP PRN; +TRANEXAMIC 1,000 MG/100ML-NACL 1,000 MG in SALINE 1 100ML.BAG IVPB PRN; +fentaNYL (PF) 50 MCG/ML 2 ML AMP IVP PRN
[2024-10-16] MEDS: IV FLUID CONTINUATION 1,000 ML IV ONE (10:29)
[2024-10-16] MEDS: ACETAMINOPHEN TAB 500 MG TAB PO PRN (10:33)
[2024-10-16] MEDS: GABAPENTIN 300 MG CAP PO PRN (10:33)
[2024-10-16] MEDS: ONDANSETRON 4 MG/2 ML VIAL IVP ONE (10:33)
[2024-10-16] MEDS: LACTATED RINGERS 1,000 ML IV SCH (10:34)
[2024-10-16] MEDS: DEXAMETHASONE SOD PHOSPHATE 4 MG/ML 1 ML VIAL IV ONE (10:34)
[2024-10-16] MEDS ORDERED: ROCURONIUM 10 MG/ML (5 ML VIAL) IV ONE (12:59)
[2024-10-16] MEDS ORDERED: LIDOCAINE 1% INJ 10MG/ML (20 ML MDV) ONE (12:59)
[2024-10-16] MEDS ORDERED: SUCCINYLCHOLINE CHLORIDE 200 MG/10 ML VIAL IV ONE (12:59)
[2024-10-16] MEDS ORDERED: PHENYLEPHRINE 10 MG/ML VIAL ONE (12:59)
[2024-10-16] MEDS ORDERED: TRANEXAMIC 1,000 MG/100ML-NACL PREMIX BAG ONE (12:59)
[2024-10-16] MEDS ORDERED: KETAMINE HCL IN 0.9 % NACL 50 MG/5 ML SYRINGE ONE (12:59)
[2024-10-16] MEDS ORDERED: HYDROmorphone (PF) 1 MG/ML ONE (12:59)
[2024-10-16] MEDS ORDERED: PROPOFOL 10 MG/ML 20 ML VIAL IV ONE (12:59)
[2024-10-16] MEDS ORDERED: fentaNYL (PF) 50 MCG/ML 2 ML AMP ONE (12:59)
[2024-10-16] MEDS ORDERED: MIDAZOLAM 2 MG/2 ML VIAL ONE (12:59)
[2024-10-16] MEDS: THROMBIN (BOVINE) 5,000 UNIT VIAL TOPICAL ONE (13:46)
[2024-10-16] MEDS: LACTATED RINGERS 1,000 ML IV ONE (14:32)
--- NOTE | 2024-10-16 14:38 | FL ---
EXAMINATION TYPE: FL guidance operating room, XR cervical spine limited DATE OF EXAM: 10/16/2024 FLUOROSCOPY 0.1405 DAP 7.6 SEC Serial intraoperative fluoroscopy during placement of 2 level lower cervical ACDF. Initial image show s surgical needle within the anterior C5-C6 disc interspace. Patient is intubated. [facility], , 10/16/2024 2:36 PM
--- NOTE | 2024-10-16 14:46 | P.OP ---
Date of Procedure: 10/16/24 Preoperative Diagnosis: IMPRESSION: 1. C6-7 HNP WITH STENOSIS 2. BUE RADICULOPATHY 3. NECK PAIN Postoperative Diagnosis: IMPRESSION: 1. C6-7 HNP WITH STENOSIS 2. BUE RADICULOPATHY 3. NECK PAIN Procedure(s) Performed: 1. C6-7 ANTERIOR CERVICAL ARTHRODESIS 2. C6-7 ANTERIOR INSTRUMENTATION 3. C6-7 INSERTION OF BIOMECHANICAL DEVICE, CAGE x1 USE OF IONM USE OF IO MICROSCOPE Implants: * RATNA CASCADIA 9 MM CAGE * RATNA OZARK PLATE AND SCREW 14 MM * MAGNATOS/AUTOGRAFT * * Anesthesia: GETA Surgeon: Xavier Houston Ham Trimmer #1: Marquise Patino (WAS PRESENT AND ASSISTED WITH ALL ASPECRTS OF THE CASE FROM POSITION TO DRESSING PLACEMENT) Estimated Blood Loss (ml): 20 IV fluids (ml): 1,000 Urine output (ml): 0 Pathology: none sent Condition: stable Disposition: PACU Indications for Procedure: Keenan Peña is a 64 year old male presenting for evaluation of sudden onset of UE WEAKNESS, PAIN, NECK PAIN AND PARESTHESIAS. It was my pleasure to have seen and examined Mr. Peña. In our visit today we have had a chance to go over subjective complaints, physical examination findings and treatments, including the natural course history without intervention and various interventional options. The imaging demonstrates C6-7 HNP WITH STENOSIS, SPONDYLOSIS, DISC COLLAPSE . On physical exam, Mr. Peña demonstrates UE PARESTHESAIS, UE WEAKNESS, NECK PAIN, ARM PAIN PAIN WITH ACTIVITY, DIFFICULTY SLEEPING AND DOING ADLS DUE TO THIS . I explained to the patient that as his condition progresses it could cause CONTINUED AND PROGRESSIVE PAIN, DEBILITY AND NEUROLOGICAL DEFICIT . At this time, based on the patients imaging and physical exam, I recommend surgery in the form or a: C6-7 ACDF . I discussed the risk and benefits of this procedure at length with Mr. Peña. The patient agreed to consider pursuing the procedure mentioned above. Plan: 1. C6-7 ANTERIOR CERVICAL DISCECTOMY AND FUSION Description of Procedure: C6-7 ACDF The patient was seen and examined in the preoperative area. All preoperative protocols were followed. Informed consent was obtained, risks and benefits of the procedure were discussed at length. Risks including bleeding infection damage to the surrounding tissue and risk of reoperation were discussed with the patient. Risk of anesthesia up to and including was discussed with the patient. These are outlined in the risk review. They were willing to accept these risks and all the risks of surgery. The patient was given a weight-based dose of antibiotics in the form of 2 g Ancef. The patient was seen and evaluated by the anesthesia team who deemed them fit for surgery. The site was marked, the patient was willing to proceed with the procedure. The patient was transferred to the operative suite by the Department of anesthesia. They were then drifted off to sleep by the department anesthesia and GETA was performed. The patient tolerated this well. Morrison catheter was placed by nursing staff, a-traumatically. Once confirmation of lines and ventilation the patient was transferred to a Supine Yamil table very carefully. All bony prominences including wrists, elbows, axilla, chest, hips, and thighs, and feet were padded very well. Special attention was paid to the genitalia, and these were padded accordingly. SCDs were placed on bilateral lower extremities and were connected. Arms were well padded and placed at their side thumbs up. Once in position, again we confirmed good ventilation capa bilities and that lines were running appropriately. The patients Cervical spine was then exposed. 1010s were placed outlining the incision site. Standard alcohol was used to clean the incision site and allowed to dry. C-arm was used to bio-andra the patient and confirm level for incision which was marked with a skin marker. Operative briefing was performed with all teams and everyone in agreement to proceed. The patient was then prepped and draped in a normal sterile fashion. Timeout was then performed, and all parties agreed with the procedure to be performed. Transverse skin incision was then made on the right side of the patient's neck 3 cm and dissection taken down to the platysma which was split transversely. Sub platysma flap was made, and interval identified between SCM and medial structures. Omohyoid was visualized and protected. Blunt dissection taken down to the anterior cervical fascia which was identified. Blunt probe was then placed and lateral image taken which confirmed levels for operation. These levels were then marked with a bovi. Subperiosteal dissection of the longissimus muscles were then done over these levels identifying uncovertebral joints bilaterally. The retractor was then placed deep to these muscles and held in place with a bed arm. Starting at C6-7, Brookings pins were placed into C6 and C7 and gentle distraction taken out over the levels. Yajaira rongeur used to remove disc material. Operating microscope brought in for visualization. Complete discectomy performed at this level with curette, rongure and pituitary. High speed emerson used to remove osteophytes anteriorly and posteriorly until PLL was identified. 6-0 up curette then used to identify the canal and resect the PLL. 2-0 and 3-0 Kerrison used then to remove PLL and disc herniation and performed b/l foraminotomies. Once good decompression was accomplished, meticulous hemostasis was performed. Sizers were then placed under lateral fluoroscopy until the desired height and lordosis. Cage was then selected, packed with autograft and allograft and placed under lateral imaging. Once in good position it was tested and stable. Motors run before and after cage p lacement were stable. The wound was irrigated, and autograft placed lateral to the cage anteriorly for fusion. Brookings pin was then removed from C7 and C6 and bone wax placed in their void. A separate, non-integrated plate was then selected and sized under lateral image. The plate was then placed with screws. Fixed screws drilled into C7 b/l and screws placed. Then into C6 and secured. All locking mechanisms were set, and all screws had good purchase. Final AP and lateral images taken confirmed good placement of hardware and good reduction and restorationist of height. The wound was then irrigated copiously with NSS. Surgicel placed deep in the wound. Meticulous hemostasis had been achieved. Layered closure then performed with 3-0 Vicryl in the platysma and subQ tissue. 4-0 Strata fix in the subcuticular tissue. The wound was then cleaned, and dried and skin glue placed. Once glue dried on Opifoam was placed. The patient was then transferred back to their hospital bed a-traumatically. They were placed in a soft collar. They were then awakened by the department of anesthesia having tolerated the procedure well without complications.
[2024-10-16 15:00] VITALS: TEMP 97.5
[2024-10-16] MEDS: HYDROmorphone 0.5 MG/0.5 ML SYRINGE IVP PRN (15:12)
[2024-10-16 16:16] VITALS: RESP 16
[2024-10-16] MEDS: HYDROcodone/APAP 10-325MG 1 EACH TAB PO ONE (16:30)
[2024-10-16 17:12] VITALS: BP 102/58; PULSE 77
== END 2024-10-16 17:25 | disposition home or self-care (01) ==
LOC: OR 09:30
PROVIDERS: ATTEND Orthopaedic Surgery
DX: M50.123 Cervical disc disorder at C6-C7 level with radiculopathy (principal); M48.02 Spinal stenosis, cervical region; I10 Essential (primary) hypertension; E78.5 Hyperlipidemia, unspecified; F41.9 Anxiety disorder, unspecified; M19.90 Unspecified osteoarthritis, unspecified site; F11.20 Opioid dependence, uncomplicated; K57.30 Diverticulosis of large intestine without perforation or abscess without bleeding; E66.812 Obesity, class 2; E66.01 Morbid (severe) obesity due to excess calories; Z68.38 Body mass index [BMI] 38.0-38.9, adult; Z87.891 Personal history of nicotine dependence; Z79.899 Other long term (current) drug therapy; Z90.49 Acquired absence of other specified parts of digestive tract; Z98.890 Other specified postprocedural states; Z91.030 Bee allergy status
CPT/HCPCS: 72040; 22551; 22853; C1713; J2250; J0330; J0690; J2405; J2003; J3010; J1171 ×2; J2704; J2371